=== PATIENT | male | born 1930 | race Caucasian/White ===

== ENCOUNTER 2018-08-22 09:00 | Emergency (ER) | payer MEDICARE, BC ==
[2018-08-22 09:27] VITALS: BP 144/65; PULSE 57; RESP 16; O2SAT 94
[2018-08-22 09:28] VITALS: TEMP 96.8
[2018-08-22] MEDS ORDERED: SODIUM CHLORIDE 0.9% FLUSH 10 ML SOL IV PRN (09:34)
[2018-08-22] MEDS ORDERED: SODIUM CHLORIDE 0.9% 1000ML 1,000 ML IV SCH (09:45)
[2018-08-22 10:16] LABS: BASOPHILS % (AUTO) 1 % (0-3); EOSINOPHILS % (AUTO) 2 % (0-9); HEMATOCRIT 35 % (39-53); HEMOGLOBIN 11.3 gm/dl (13.5-17.7); LYMPHOCYTES % (AUTO) 28.4 % (10-50); MEAN CORPUSCULAR HEMOGLOBIN 30.3 pg (27.0-32.0); MEAN CORPUSCULAR VOLUME 95 fL (80-100); MONOCYTES % (AUTO) 9.7 % (0-12); NEUTROPHILS % (AUTO) 58.7 % (37-80)
[2018-08-22 10:38] LABS: ALKALINE PHOSPHATASE 60 IU/L (46-116); ALT 11 IU/L (14-63); AST 15 IU/L (15-37); BILIRUBIN,TOTAL 0.6 mg/dl (0.2-1.0); BLOOD UREA NITROGEN 27 mg/dl (7-18); CALCIUM 8.5 mg/dl (8.5-10.1); CARBON DIOXIDE 28.7 mEq/L (21-32); CHLORIDE 106 mMol/L (98-107); CREATININE 1.53 mg/dl (0.80-1.30); GLUCOSE 120 mg/dl (74-106); POTASSIUM 4.2 mMol/L (3.5-5.1); SODIUM 142 mMol/L (136-145); THYROID STIMULATING HORMONE 6.375 uIU/ml (0.358-3.740); TOTAL PROTEIN 7.1 gm/dl (6.4-8.2); TROP I < 0.017 ng/ml (0.000-0.056)
[2018-08-22] MEDS ORDERED: ASPIRIN 81 MG CHEWABLE CTB ONE ×2 (11:00→11:01)
[2018-08-23] MEDS ORDERED: ASPIRIN 325 MG TAB PO SCH (09:00)
== END 2018-08-22 14:25 | disposition home health service (06) | DRG 312 ==
LOC: ED 09:00
DX: R55 Syncope and collapse (principal); R00.1 Bradycardia, unspecified
CPT/HCPCS: 36415; 70450; 71045; 80053; 83880; 84443; 84484; 85025; 93005; 96365; 99284; 99285

== ENCOUNTER 2018-12-04 13:38 | Emergency (ER) | payer MEDICARE, BC, OTHER | END 2018-12-04 15:48 | LOC: ED 13:38 ==

== ENCOUNTER 2018-12-04 18:51 | Inpatient (IN) | payer MEDICARE, BC ==
[2018-12-04 14:09] LABS: BASOPHILS % (AUTO) 1 % (0-3); EOSINOPHILS % (AUTO) 2 % (0-9); HEMATOCRIT 34 % (39-53); HEMOGLOBIN 11.2 gm/dl (13.5-17.7); LYMPHOCYTES % (AUTO) 45.2 % (10-50); MEAN CORPUSCULAR HEMOGLOBIN 31.4 pg (27.0-32.0); MEAN CORPUSCULAR VOLUME 95 fL (80-100); MONOCYTES % (AUTO) 11.2 % (0-12); NEUTROPHILS % (AUTO) 40.3 % (37-80)
[2018-12-04 14:19] LABS: INR 1.08 (0.86-1.12)
[2018-12-04 14:26] LABS: BLOOD UREA NITROGEN 28 mg/dl (7-18); CALCIUM 8.6 mg/dl (8.5-10.1); CARBON DIOXIDE 29.3 mEq/L (21-32); CHLORIDE 107 mMol/L (98-107); CREATININE 1.56 mg/dl (0.80-1.30); GLUCOSE 102 mg/dl (74-106); POTASSIUM 4.8 mMol/L (3.5-5.1); SODIUM 144 mMol/L (136-145); TROP I < 0.017 ng/ml (0.000-0.056)
[2018-12-04 19:41] LABS: BASOPHILS % (AUTO) 1 % (0-3); EOSINOPHILS % (AUTO) 2 % (0-9); HEMATOCRIT 32 % (39-53); HEMOGLOBIN 10.4 gm/dl (13.5-17.7); LYMPHOCYTES % (AUTO) 40.1 % (10-50); MEAN CORPUSCULAR HEMOGLOBIN 30.6 pg (27.0-32.0); MEAN CORPUSCULAR HGB CONC 32.3 gm/dl (32.0-36.0); MEAN CORPUSCULAR VOLUME 95 fL (80-100); NEUTROPHILS % (AUTO) 45.4 % (37-80)
[2018-12-04] MEDS: SODIUM CHLORIDE 0.9% 500 ML 500 ML IV SCH (19:50)
[2018-12-04 19:55] LABS: ALBUMIN 2.9 gm/dl (3.4-5.0); BILIRUBIN,TOTAL 0.4 mg/dl (0.2-1.0); CALCIUM 8.5 mg/dl (8.5-10.1); CREATININE 1.65 mg/dl (0.80-1.30); POTASSIUM 4.6 mMol/L (3.5-5.1); TOTAL PROTEIN 6.6 gm/dl (6.4-8.2)
[2018-12-04 20:00] LABS: CARBON DIOXIDE 27.9 mEq/L (21-32)
[2018-12-04 20:01] LABS: TROP I 0.024 ng/ml (0.000-0.056)
[2018-12-04] MEDS ORDERED: HALOPERIDOL LACTATE 5 MG/ML SOL IM ONE (21:17)
[2018-12-04] MEDS ORDERED: MAGNESIUM SULFATE 1 GM/2 ML SOL IV ONE (21:19)
[2018-12-04] MEDS ORDERED: HALOPERIDOL LACTATE 5 MG/ML SOL ONE (21:22)
[2018-12-04] MEDS ORDERED: NITROGLYCERIN 0.4 MG TAB SL PRN (21:48)
[2018-12-04] MEDS ORDERED: LOPERAMIDE HYDROCHLORIDE 2 MG CAP PO PRN (21:48)
[2018-12-04] MEDS ORDERED: ACETAMINOPHEN 325 MG PO PRN (21:48)
[2018-12-04] MEDS ORDERED: PEG-400/PROPYLENE GLYCOL 1 DROP SOL OP PRN (21:48)
[2018-12-04] MEDS ORDERED: MAGNESIUM HYDROXIDE 30 ML SUS PO PRN (21:48)
[2018-12-04] MEDS ORDERED: HYDROXYZINE PAMOATE 25 MG CAPSULE PO PRN (21:48)
[2018-12-04 21:56] LABS: APPEARANCE,URINE Clear; BILIRUBIN,URINE NEGATIVE (NEGATIVE); COLOR,URINE Yellow; GLUCOSE, URINE (UA) NEGATIVE (NEGATIVE); KETONES,URINE TRACE (NEGATIVE); LEUKOCYTE ESTERASE ,URINE NEGATIVE (NEGATIVE); NITRATE,URINE NEGATIVE (NEGATIVE); OCCULT BLOOD,URINE NEGATIVE (NEG-TRACE)
[2018-12-04 22:05] LABS: BACTERIA TRACE (< 1+); CRYSTALS NEGATIVE (0-3 AVE/HPF); EPITHELIAL CELLS 0-1 (SQUAMOUS); RBC,URINE NEGATIVE (0-3AV/HPF)
[2018-12-04] MEDS ORDERED: MAGNESIUM SULFATE 5 GM/10 ML SOL ONE (23:25)
[2018-12-04] MEDS: CLOPIDOGREL 75 MG TAB PO SCH (23:51)
[2018-12-05] MEDS: SODIUM CHLORIDE 0.9% 500 ML 500 ML IV SCH ×2 (01:42→05:48)
[2018-12-05] MEDS ORDERED: LEVOTHYROXINE SODIUM 50 MCG TAB PO SCH (07:00)
[2018-12-05 07:18] LABS: CALCIUM 8.5 mg/dl (8.5-10.1); CARBON DIOXIDE 27.7 mEq/L (21-32); CREATININE 1.32 mg/dl (0.80-1.30); POTASSIUM 4.5 mMol/L (3.5-5.1)
[2018-12-05 07:19] LABS: BASOPHILS % (AUTO) 1 % (0-3); EOSINOPHILS % (AUTO) 3 % (0-9); HEMATOCRIT 30 % (39-53); HEMOGLOBIN 10.1 gm/dl (13.5-17.7); LYMPHOCYTES % (AUTO) 39.9 % (10-50); MEAN CORPUSCULAR HEMOGLOBIN 31.7 pg (27.0-32.0); MEAN CORPUSCULAR HGB CONC 33.2 gm/dl (32.0-36.0); MEAN CORPUSCULAR VOLUME 95 fL (80-100); NEUTROPHILS % (AUTO) 43.9 % (37-80)
[2018-12-05] MEDS ORDERED: HALOPERIDOL LACTATE 5 MG/ML SOL IV PRN (08:28)
[2018-12-05] MEDS ORDERED: Non-Formulary Medication MISC (Levothyroxine Sodium 88 Mcg 88 MCG) PO SCH (09:00)
[2018-12-05] MEDS ORDERED: OMEPRAZOLE 10 MG PO SCH (09:00)
[2018-12-05] MEDS: ASPIRIN 81 MG CHEWABLE CTB PO SCH (09:12)
[2018-12-05] MEDS: POLYETHYLENE GLYCOL 17 GM/1 TBS PDS PO SCH (09:13)
[2018-12-05] MEDS: PANTOPRAZOLE SODIUM 40 MG ECT PO SCH (09:13)
[2018-12-05] MEDS: CHOLECALCIFEROL 1,000 IU TAB PO SCH (09:13)
[2018-12-05] MEDS: FOLIC ACID 1 MG TAB PO SCH (09:13)
[2018-12-05] MEDS: OLANZAPINE 2.5 MG TAB PO SCH (09:13)
[2018-12-05] MEDS: FLUTICASONE PROPIONATE SPR NAS SCH (10:33)
[2018-12-05] MEDS: LEVODOPA PO SCH ×4 (12:14→20:31)
[2018-12-05] MEDS: CARBIDOPA PO SCH ×4 (12:14→20:31)
[2018-12-05] MEDS: [UNRECOGNIZED DRUG - OTHER] PO SCH ×4 (12:14→20:31)
[2018-12-05] MEDS: GABAPENTIN 100 MG CAP PO SCH ×3 (12:14→17:31)
[2018-12-05] MEDS: DIVALPROEX ECC 125 MG ECC PO SCH ×2 (12:18→20:32)
[2018-12-05] MEDS: MEMANTINE HYDROCHLORIDE 10 MG TAB PO SCH ×2 (12:24→20:32)
[2018-12-05] MEDS: PRAZOSIN HCL 1 MG PO SCH ×2 (12:24→20:33)
[2018-12-05] MEDS: LEVOTHYROXINE SODIUM 88 MCG TAB PO SCH (12:31)
[2018-12-05] MEDS: DM/GUAIFENESIN SYRUP 10 ML SYRP PO SCH ×2 (12:32→20:36)
[2018-12-05] MEDS: CLOPIDOGREL 75 MG TAB PO SCH (20:33)
[2018-12-05 20:54] VITALS: RESP 18
[2018-12-06] MEDS: LEVOTHYROXINE SODIUM 88 MCG TAB PO SCH (06:40)
[2018-12-06 07:10] LABS: BASOPHILS % (AUTO) 2 % (0-3); EOSINOPHILS % (AUTO) 3 % (0-9); HEMATOCRIT 32 % (39-53); HEMOGLOBIN 10.8 gm/dl (13.5-17.7); LYMPHOCYTES % (AUTO) 43.3 % (10-50); MEAN CORPUSCULAR HEMOGLOBIN 31.8 pg (27.0-32.0); MEAN CORPUSCULAR HGB CONC 33.6 gm/dl (32.0-36.0); MEAN CORPUSCULAR VOLUME 95 fL (80-100); MONOCYTES % (AUTO) 11.6 % (0-12); NEUTROPHILS % (AUTO) 40.8 % (37-80)
[2018-12-06 07:20] LABS: CALCIUM 8.4 mg/dl (8.5-10.1); CARBON DIOXIDE 27.6 mEq/L (21-32); CREATININE 1.3 mg/dl (0.80-1.30); POTASSIUM 4.4 mMol/L (3.5-5.1)
[2018-12-06] MEDS: [UNRECOGNIZED DRUG - OTHER] PO SCH ×2 (09:01→12:04)
[2018-12-06] MEDS: LEVODOPA PO SCH ×2 (09:01→12:04)
[2018-12-06] MEDS: ASPIRIN 81 MG CHEWABLE CTB PO SCH (09:01)
[2018-12-06] MEDS: FOLIC ACID 1 MG TAB PO SCH (09:01)
[2018-12-06] MEDS: DIVALPROEX ECC 125 MG ECC PO SCH (09:01)
[2018-12-06] MEDS: CARBIDOPA PO SCH ×2 (09:01→12:04)
[2018-12-06] MEDS: OLANZAPINE 2.5 MG TAB PO SCH (09:02)
[2018-12-06] MEDS: PRAZOSIN HCL 1 MG PO SCH (09:02)
[2018-12-06] MEDS: MEMANTINE HYDROCHLORIDE 10 MG TAB PO SCH (09:02)
[2018-12-06] MEDS: PANTOPRAZOLE SODIUM 40 MG ECT PO SCH (09:02)
[2018-12-06] MEDS: CHOLECALCIFEROL 1,000 IU TAB PO SCH (09:02)
[2018-12-06] MEDS: GABAPENTIN 100 MG CAP PO SCH ×2 (09:02→12:04)
[2018-12-06] MEDS: DM/GUAIFENESIN SYRUP 10 ML SYRP PO SCH (09:02)
[2018-12-06] MEDS: POLYETHYLENE GLYCOL 17 GM/1 TBS PDS PO SCH (09:02)
[2018-12-06] MEDS: FLUTICASONE PROPIONATE SPR NAS SCH (09:03)
[2018-12-06 09:23] VITALS: BP 176/73; PULSE 62; TEMP 97.6; O2SAT 98
== END 2018-12-06 13:00 | DRG 65 ==
LOC: ED 18:51 → ACUTE CARE 21:38
PROVIDERS: ADMIT Internal Medicine; ATTEND Internal Medicine
PROC: F02Z3FZ Grooming/Personal Hygiene Assessment using Assistive, Adaptive, Supportive or Protective Equipment (ICD-10-PCS; principal; 2018-12-04)
PROC: F02Z0FZ Bathing/Showering Assessment using Assistive, Adaptive, Supportive or Protective Equipment (ICD-10-PCS; 2018-12-04)
PROC: F01K5ZZ Range of Motion and Joint Integrity Assessment of Musculoskeletal System - Upper Back / Upper Extremity (ICD-10-PCS; 2018-12-04)
DX: I63.9 Cerebral infarction, unspecified (principal); F02.81 Dementia in other diseases classified elsewhere, unspecified severity, with behavioral disturbance; R40.2362 Coma scale, best motor response, obeys commands, at arrival to emergency department; R40.2142 Coma scale, eyes open, spontaneous, at arrival to emergency department; R40.2242 Coma scale, best verbal response, confused conversation, at arrival to emergency department; R41.0 Disorientation, unspecified; R29.810 Facial weakness; R29.714 NIHSS score 14; G30.1 Alzheimer's disease with late onset
CPT/HCPCS: 36415; 70450; 80048; 80053; 81001; 83735; 84484; 85025; 85610; 85730; 93005; 93012; 96365; 96366; 96372; 99223; 99283; 99291; J1630; J3475; A9270-GY

== ENCOUNTER 2018-12-27 01:13 | Emergency (ER) | payer MEDICARE, BC ==
[2018-12-27 01:37] VITALS: RESP 18; TEMP 97
[2018-12-27] MEDS ORDERED: HYDROMORPHONE 1 MG/ML SYRINGE IV PRN (02:14)
[2018-12-27] MEDS ORDERED: HYDROMORPHONE 1 MG/ML SYRINGE ONE (02:18)
[2018-12-27] MEDS ORDERED: TDAP VACCINE 0.5 ML SUS IM ONE ×2 (02:20)
[2018-12-27 03:11] VITALS: BP 163/99; PULSE 58; O2SAT 96
== END 2018-12-27 02:26 | disposition short-term general hospital (02) | DRG 536 ==
LOC: ED 01:13
DX: S72.001A Fracture of unspecified part of neck of right femur, initial encounter for closed fracture (principal); W19.XXXA Unspecified fall, initial encounter; F03.90 Unspecified dementia, unspecified severity, without behavioral disturbance, psychotic disturbance, mood disturbance, and anxiety; R40.2362 Coma scale, best motor response, obeys commands, at arrival to emergency department; R40.2142 Coma scale, eyes open, spontaneous, at arrival to emergency department; R40.2242 Coma scale, best verbal response, confused conversation, at arrival to emergency department; R06.02 Shortness of breath
CPT/HCPCS: 73501; 90471; 90715; 96374; 99283; 99285; G0390; J1170